=== PATIENT | male | born 1995 ===

== ENCOUNTER 2021-07-16 18:56 | Emergency (ER) | payer SELFPAY ==
[2021-07-16 19:41] LABS: Basophils % (Auto) 0.1 % (0.0-1.8); Eosinophils % (Auto) 0.5 % (0.0-4.3); Hematocrit 45.8 % (35.5-45.6); Hemoglobin 15.1 gm/dl (11.8-15.2); Lymphocytes # (Auto) 0.4 K/mm3 (1.2-5.4); Lymphocytes % (Auto) 4.3 % (13.4-35.0); Mean Corpuscular HGB Conc 33 % (32-34); Mean Corpuscular Volume 87 fl (84-94); Monocytes # (Auto) 0.8 K/mm3 (0.0-0.8); Monocytes % (Auto) 8.5 % (0.0-7.3); Platelet Count 164 K/mm3 (140-440); Red Blood Count 5.25 M/mm3 (3.65-5.03); Red Cell Distribution Width 12.8 % (13.2-15.2)
[2021-07-16] MEDS ORDERED: MORPHINE 4 MG/1 ML INJ IV ONE (19:43)
[2021-07-16] MEDS ORDERED: ONDANSETRON 4 MG/2 ML INJ IV ONE ×2 (19:44→23:00)
[2021-07-16 19:56] LABS: Alanine Aminotransferase 13 units/L (7-56); Albumin 4.6 g/dL (3.9-5); BUN/Creatinine Ratio 14; Blood Urea Nitrogen 13 mg/dL (9-20); Calcium 9.2 mg/dL (8.4-10.2); Hemolysis Index 6
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
[2021-07-16] MEDS ORDERED: LIDOCAINE (1%) 10 MG/1 ML VIAL 20 ML MDV INFILTRATI ONE (22:30)
[2021-07-16] MEDS ORDERED: ONDANSETRON 4 MG/2 ML INJ ONE (22:50)
[2021-07-16] MEDS ORDERED: SODIUM CHLORIDE 0.9% 1000 ML 1,000 ML ONE (22:50)
[2021-07-16] MEDS ORDERED: SODIUM CHLORIDE 0.9% 1000 ML 1,000 ML IV ONE (23:00)
--- NOTE | 2021-07-17 00:44 | Cat Scan Report ---
CT ABDOMEN AND PELVIS WITHOUT CONTRAST INDICATION / CLINICAL INFORMATION: Pt complains of abdominal pain and tenderness.. TECHNIQUE: Axial CT images were obtained through the abdomen and pelvis without IV contrast. All CT scans at this location are performed using CT dose reduction for ALARA by means of automated exposure control. Patient received contrast for different examination earlier in the day. COMPARISON: CT of the lower extremity from earlier in the day FINDINGS: LOWER CHEST: No significant abnormality. AORTA / ARTERIES: No significant abnormality. IVC / VEINS: No significant abnormality. LYMPH NODES: No significant adenopathy. COLON: No significant abnormality. APPENDIX: No significant abnormality. STOMACH / SMALL BOWEL: No significant abnormality. PERITONEUM: No free fluid. No free air. No fluid collection. LIVER: No significant abnormality. GALLBLADDER: No significant abnormality. BILE DUCTS: No significant abnormality. PANCREAS: No significant abnormality. SPLEEN: No significant abnormality. ADRENALS: No significant abnormality. RIGHT KIDNEY / URETER: No significant abnormality. LEFT KIDNEY / URETER: No significant abnormality. URINARY BLADDER: No significant abnormality. REPRODUCTIVE ORGANS: No significant abnormality. SKELETAL SYSTEM: No significant abnormality. ADDITIONAL FINDINGS: Soft tissue defect is noted overlying the left anterior thigh which is better ev aluated on earlier CT examination. IMPRESSION: 1. No CT findings to explain symptomatology. Signer Name: Bib Macias DO Signed: 07/17/2021 12:40 AM Workstation Name: [id number]
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
[2021-07-17 01:13] VITALS: BP 111/73
== END 2021-07-17 01:19 | disposition home or self-care (01) ==
LOC: ED 18:56
DX: S71.112A Laceration without foreign body, left thigh, initial encounter (principal); Y09 Assault by unspecified means; Y93.89 Activity, other specified; Y92.89 Other specified places as the place of occurrence of the external cause; Y99.8 Other external cause status
CPT/HCPCS: 12032; 36415; 73706; 74176; 80053; 85025; 96361; 96374; 99284; J0690; J2270; J2405; J3490; J7030; Q9967; Q0162

== ENCOUNTER 2021-08-21 11:54 | Emergency (ER) | payer SELFPAY ==
[2021-08-21 12:26] VITALS: BP 112/65
--- NOTE | 2021-08-21 12:48 | Emergency Department Report ---
ED General Adult HPI - General Chief complaint: Laceration/Recheck/Suture Stated complaint: SUTURE REMOVAL Time Seen by Provider: 08/21/21 12:32 Source: patient Mode of arrival: Ambulatory Limitations: No Limitations - History of Present Illness Initial comments: 26-year-old male patient presents for suture removal today. Patient had sutures placed here in the ED on 07/16/2021. Patient states he did take all of the Keflex as prescribed. He denies any pain, redness, drainage, or difficulty moving his leg. He does admit to some underlying hardness beneath the wound. No fever/chills or sweats per patient. He states he is feeling well - Related Data Previous Rx's Medication Instructions Recorded Last Taken Type Ibuprofen [Motrin] 800 mg PO Q8HR PRN #14 tablet 07/17/21 Unknown Rx cephALEXin [Keflex] 500 mg PO Q12HR #14 cap 07/17/21 Unknown Rx Sulfamethoxazole/Trimethoprim 1 each PO BID 7 Days #14 tab 08/21/21 Unknown Rx [Bactrim DS TAB] Allergies Allergy/AdvReac Type Severity Reaction Status Date / Time No Known Allergies Allergy Verified 07/16/21 20:55 ED Review of Systems ROS: Stated complaint: SUTURE REMOVAL Other details as noted in HPI Constitutional: denies: chills, fever, malaise Musculoskeletal: denies: joint swelling, arthralgia Skin: denies: rash, lesions, change in color ED Past Medical Hx - Past Medical History Previous Medical History?: No Hx Hypertension: No Hx CVA: No Hx Heart Attack/AMI: No Hx Congestive Heart Failure: No - Surgical History Past Surgical History?: No - Medications Home Medications: Home Medications Medication Instructions Recorded Confirmed Last Taken Type Ibuprofen [Motrin] 800 mg PO Q8HR PRN #14 tablet 07/17/21 Unknown Rx cephALEXin [Keflex] 500 mg PO Q12HR #14 cap 07/17/21 Unknown Rx Sulfamethoxazole/Trimethoprim 1 each PO BID 7 Days #14 tab 08/21/21 Unknown Rx [Bactrim DS TAB] ED Physical Exam - General Limitations: No Limitations General appearance: alert, in no apparent distress - Head Head exam: Present: atraumatic, normocephalic - Eye Eye exam: Present: normal appearance - Respiratory Respiratory exam: Absent: respiratory distress - Cardiovascular Cardiovascular Exam: Present: regular rate - Extremities Exam Extremities exam: Present: other (Full range of motion of left hip noted) - Neurological Exam Neurological exam: Present: alert, oriented X3 - Psychiatric Psychiatric exam: Present: normal affect, normal mood - Skin Skin exam: Present: warm, dry, intact, normal color, other (Healing wound noted to left upper inner groin with sutures in place; there is concentric induration noted with palpation that is nontender; no overlying redness noted; no wound dehiscence noted). Absent: rash ED Course Vital Signs 08/21/21 12:24 Temperature 98.4 F Pulse Rate 64 Respiratory 16 Rate Blood Pressure 112/65 [Left] O2 Sat by Pulse 96 Oximetry - Procedure Description Procedures done: 6 simple sutures removed. No wound dehiscence or purulent drainage noted. No bleeding noted. Patient tolerated procedure well without any immediate complications ED Medical Decision Making - Medical Decision Making 26-year-old male patient presents for suture removal today. Patient had sutures placed here in the ED on 07/16/2021. Patient states he did take all of the Keflex as prescribed. He denies any pain, redness, drainage, or difficulty moving his leg. He does admit to some underlying hardness beneath the wound. No fever/chills or sweats per patient. He states he is feeling well Wound is healing well, however given underlying induration, Bactrim prescribed. Discussed signs and symptoms that should prompt immediate return to the ED with patient verbalized understanding. Critical care attestation.: If time is entered above; I have spent that time in minutes in the direct care of this critically ill patient, excluding procedure time. ED Disposition Clinical Impression: Encounter for removal of sutures Disposition: 01 HOME / SELF CARE / HOMELESS Is pt being admited?: No Condition: Stable Instructions: Wound Closure Removal, Care After Prescriptions: Sulfamethoxazole/Trimethoprim [Bactrim DS TAB] 1 each PO BID 7 Days #14 tab Referrals: [facility] [Provider Group] - 3-5 Days
== END 2021-08-21 13:12 | disposition home or self-care (01) ==
LOC: ED 11:54
DX: T14.8XXD Other injury of unspecified body region, subsequent encounter (principal); X58.XXXD Exposure to other specified factors, subsequent encounter; Z48.02 Encounter for removal of sutures
CPT/HCPCS: 99282